=== PATIENT | female | born 1995 | race Caucasian/White ===

== ENCOUNTER 2019-05-24 20:05 | Emergency (ER) | payer MEDICAID ==
[~2019-05-24] VITALS: Ht 167.6 cm; Wt 67.0 kg
[2019-05-24 20:08] VITALS: BP 109/65
--- NOTE | 2019-05-24 20:40 | NUR ---
in room. as
--- NOTE | 2019-05-24 21:10 | NUR ---
ALL RESULTS ARE BACK AT THIS TIME. CHART UP FOR RECHECK.
== END 2019-05-24 21:46 | disposition home or self-care (01) ==
LOC: ED 20:30
DX: O26.891 Other specified pregnancy related conditions, first trimester (principal); S46.812A Strain of other muscles, fascia and tendons at shoulder and upper arm level, left arm, initial encounter; R20.2 Paresthesia of skin; J45.909 Unspecified asthma, uncomplicated; Z87.891 Personal history of nicotine dependence; Z3A.09 9 weeks gestation of pregnancy; X58.XXXA Exposure to other specified factors, initial encounter; Y93.89 Activity, other specified; Y92.89 Other specified places as the place of occurrence of the external cause; Y99.8 Other external cause status
CPT/HCPCS: 71045; 99283

== ENCOUNTER 2019-05-27 11:10 | Emergency (ER) | payer MEDICAID ==
[~2019-05-27] VITALS: Ht 170.2 cm; Wt 65.9 kg
[2019-05-27 11:15] VITALS: BP 121/60
--- NOTE | 2019-05-27 11:38 | NUR ---
PT TO ULTRASOUND AT THIS TIME.
[2019-05-27 12:41] LABS: BASOPHILS # (AUTO) 0.05 x10^3/uL (0-0.1); BASOPHILS % (AUTO) 1 % (0-1); EOSINOPHILS # (AUTO) 0.14 x10^3/uL (0-0.4); EOSINOPHILS % (AUTO) 1 % (1-7); LYMPHOCYTES # (AUTO) 1.98 x10^3/uL (1-3.4); LYMPHOCYTES % (AUTO) 19 % (22-44); MD NO; MEAN CORPUSCULAR HGB CONC 32.9 g/dL (32.4-35.8); MEAN CORPUSCULAR VOLUME 94.2 fL (80-100); MEAN PLATELET VOLUME 7.8 fL (7.4-10.4); MONOCYTES # (AUTO) 0.58 x10^3/uL (0.2-0.8); MONOCYTES % (AUTO) 6 % (2-9); NEUTROPHILS # (AUTO) 7.59 x10^3/uL (1.8-6.8); NEUTROPHILS % (AUTO) 73 % (42-75); PLATELET COUNT 294 x10^3/uL (130-400); RED BLOOD COUNT 4.26 x10^6/uL (3.82-5.3); RED CELL DISTRIBUTION WIDTH 12.6 % (9.6-15.2)
[2019-05-27 12:50] LABS: MICROSCOPIC NOT IND
[2019-05-27 12:54] LABS: ALBUMIN 3.6 g/dL (3.4-5.0); ANION GAP 6 mmol/L (5-15); CALCIUM 9.5 mg/dL (8.5-10.1); CHLORIDE 106 mmol/L (98-107)
[2019-05-27 12:54] LABS: CULTURE INDICATED? NO
[2019-05-27 12:58] LABS: ALANINE AMINOTRANSFERASE 15 U/L (12-78); ALKALINE PHOSPHATASE 76 U/L (45-117); BILIRUBIN,TOTAL 0.3 mg/dL (0.2-1.0); CREATININE 0.67 mg/dL (0.55-1.02); TOTAL PROTEIN 7.5 g/dL (6.4-8.2)
== END 2019-05-27 13:24 | disposition home or self-care (01) ==
LOC: ED 12:40
DX: O20.0 Threatened abortion (principal); O99.511 Diseases of the respiratory system complicating pregnancy, first trimester; J45.909 Unspecified asthma, uncomplicated; Z3A.09 9 weeks gestation of pregnancy
CPT/HCPCS: 36415; 76801; 80053; 81003; 85025; 99284

== ENCOUNTER 2019-05-30 18:41 | Emergency (ER) | payer MEDICAID ==
[~2019-05-30] VITALS: Ht 170.2 cm; Wt 64.6 kg
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
[2019-05-30] MEDS ORDERED: SODIUM CHLORIDE 0.9% 1,000ML IVBOLUS ONE (19:30)
[2019-05-30] MEDS ORDERED: SODIUM CHLORIDE FLUSH 10ML SYR IVF ONE (19:30)
[2019-05-30] MEDS ORDERED: ONDANSETRON 2MG/ML, 2ML IVPush ONE (19:30)
[2019-05-30] MEDS ORDERED: ONDANSETRON 2MG/ML, 2ML ONE (19:44)
[2019-05-30] MEDS ORDERED: ACETAMINOPHEN 500 MG TABLET ONE ×3 (20:10→20:14)
[2019-05-30 20:14] LABS: MEAN CORPUSCULAR HEMOGLOBIN 31.1 pg (27.0-34.8); MEAN CORPUSCULAR HGB CONC 32.9 g/dL (32.4-35.8); MEAN CORPUSCULAR VOLUME 94.4 fL (80-100); MEAN PLATELET VOLUME 7.7 fL (7.4-10.4); PLATELET COUNT 315 x10^3/uL (130-400); RED BLOOD COUNT 4.58 x10^6/uL (3.82-5.3); RED CELL DISTRIBUTION WIDTH 12.2 % (9.6-15.2)
[2019-05-30 20:19] LABS: ALANINE AMINOTRANSFERASE 17 U/L (12-78); ALBUMIN 3.9 g/dL (3.4-5.0); ANION GAP 9 mmol/L (5-15); CALCIUM 9.6 mg/dL (8.5-10.1); CHLORIDE 104 mmol/L (98-107); CREATININE 0.88 mg/dL (0.55-1.02)
[2019-05-30 20:21] LABS: ALKALINE PHOSPHATASE 95 U/L (45-117); BILIRUBIN,TOTAL 0.7 mg/dL (0.2-1.0); TOTAL PROTEIN 8.5 g/dL (6.4-8.2)
[2019-05-30 20:28] LABS: BASOPHILS # (AUTO) 0.03 x10^3/uL (0-0.1); BASOPHILS % (AUTO) 0 % (0-1); EOSINOPHILS % (AUTO) 0 % (1-7); LYMPHOCYTES # (AUTO) 0.92 x10^3/uL (1-3.4); LYMPHOCYTES % (AUTO) 6 % (22-44); MD SCAN; MONOCYTES # (AUTO) 0.49 x10^3/uL (0.2-0.8); MONOCYTES % (AUTO) 3 % (2-9); NEUTROPHILS # (AUTO) 13.21 x10^3/uL (1.8-6.8); NEUTROPHILS % (AUTO) 90 % (42-75)
[2019-05-30 20:30] LABS: CULTURE INDICATED? YES; MICROSCOPIC INDICATED
[2019-05-30] MEDS ORDERED: ACETAMINOPHEN 500 MG TABLET PO ONE (20:30)
[2019-05-30] MEDS ORDERED: ACETAMINOPHEN 325 MG TABLET PO ONE (20:30)
[2019-05-30] MEDS ORDERED: CEFTRIAXONE PMX 1GM/50ML 50 ML ONE (20:50)
--- NOTE | 2019-05-30 20:55 | NUR ---
ANTIBIOTICS STARTED AFTER BLOOD CULTURES X 2 WERE DRAWN.
[2019-05-30] MEDS ORDERED: CEFTRIAXONE PMX 1GM/50ML 50 ML IV ONE (21:00)
[2019-05-30 21:47] VITALS: BP 121/84
== END 2019-05-30 21:50 | disposition home or self-care (01) ==
LOC: ED 19:14
DX: O23.11 Infections of bladder in pregnancy, first trimester (principal); Z20.828 Contact with and (suspected) exposure to other viral communicable diseases; O21.8 Other vomiting complicating pregnancy; O99.511 Diseases of the respiratory system complicating pregnancy, first trimester; Z3A.10 10 weeks gestation of pregnancy
CPT/HCPCS: 36415; 80053; 81001; 83605; 83690; 84145; 85025; 87040; 87086; 96361; 96365; 96375; 99284; J0696; J2405; J7030

== ENCOUNTER 2019-06-16 21:03 | Emergency (ER) | payer MEDICAID ==
[~2019-06-16] VITALS: Ht 167.6 cm; Wt 64.2 kg
[2019-06-16 21:08] VITALS: BP 103/65
--- NOTE | 2019-06-16 21:18 | NUR ---
provided pt with rosalina
[2019-06-16] MEDS ORDERED: PRENATAL PO (21:25)
[2019-06-16] MEDS ORDERED: ACET325C6 PO (21:25)
--- NOTE | 2019-06-16 21:25 | NUR ---
PT SITTING UP ON GURNEY, MONITORS APPLIED, SIDERAILS UP X2, CALL LIGHT WITHIN REACH. PA AT BEDSIDE FOR EVAL, AWAITING ORDERS
--- NOTE | 2019-06-16 21:42 | NUR ---
elevated right arm on pillow and ice pack applied to right shoulder
--- NOTE | 2019-06-16 21:53 | NUR ---
driver's education instructor at pt's bedside to apply sling to right side
== END 2019-06-16 22:03 | disposition home or self-care (01) ==
LOC: ED 21:18
DX: O26.891 Other specified pregnancy related conditions, first trimester (principal); M25.511 Pain in right shoulder; R11.0 Nausea; F17.200 Nicotine dependence, unspecified, uncomplicated; J45.909 Unspecified asthma, uncomplicated; R94.31 Abnormal electrocardiogram [ECG] [EKG]; Z3A.12 12 weeks gestation of pregnancy
CPT/HCPCS: 93005; 99283

== ENCOUNTER 2019-06-30 18:47 | Emergency (ER) | payer MEDICAID ==
[~2019-06-30] VITALS: Ht 167.6 cm; Wt 68.0 kg
[~2019-06-30 18:47] MED LIST: ACET325C6 PO; PRENATAL PO
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
--- NOTE | 2019-06-30 19:00 | NUR ---
[place] [id number] HERE TAKING STATEMENT AND WILL FILE CPS REPORT
--- NOTE | 2019-06-30 19:55 | NUR ---
Jace from [employer] with [employer], phone [phone], states patient will be placed in hotel by them for tonight. [address] and the [place] [address] [place] [address], [address]. Patient can call Jace if needed. Asks that patient is given taxi voucher on discharge to pharmacy picking technician her daughter and then go to this hotel.
[2019-06-30 20:45] LABS: CULTURE INDICATED? YES; MICROSCOPIC INDICATED
[2019-06-30 21:59] VITALS: BP 105/78
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
== END 2019-06-30 22:08 | disposition home or self-care (01) ==
LOC: ED 19:59
DX: O23.12 Infections of bladder in pregnancy, second trimester (principal); O99.512 Diseases of the respiratory system complicating pregnancy, second trimester; R10.33 Periumbilical pain; J45.909 Unspecified asthma, uncomplicated; Z3A.14 14 weeks gestation of pregnancy
CPT/HCPCS: 76815; 81001; 87086; 99284

== ENCOUNTER 2019-10-07 19:44 | Outpatient (CLI) | payer MEDICAID ==
[~2019-10-07] VITALS: Ht 167.6 cm; Wt 65.0 kg
[2019-10-07 19:57] VITALS: BP 106/60
[2019-10-07 20:23] LABS: MICROSCOPIC INDICATED
[2019-10-07 20:31] LABS: AMPHETAMINE SCREEN, URINE Negative (Negative); BARBITURATE SCREEN, URINE Negative (Negative); BENZODIAZEPINE SCREEN, URINE Negative (Negative); CANNABINOID SCREEN, URINE Negative (Negative); COCAINE SCREEN, URINE Negative (Negative); METHADONE SCREEN, URINE Negative (Negative); OPIATE SCREEN, URINE Negative (Negative)
== END 2019-10-07 22:23 | disposition home or self-care (01) ==
LOC: LDOP 19:44
PROVIDERS: ATTEND Obstetrics & Gynecology
DX: O26.893 Other specified pregnancy related conditions, third trimester (principal); R10.9 Unspecified abdominal pain; Z3A.28 28 weeks gestation of pregnancy
CPT/HCPCS: 76815; 80307; 81001; 87086; 99211; G0463

== ENCOUNTER 2020-07-01 16:13 | Emergency (ER) | payer MEDICAID ==
[~2020-07-01] VITALS: Ht 167.6 cm; Wt 70.7 kg
[2020-07-01 16:36] VITALS: BP 103/61
--- NOTE | 2020-07-01 16:44 | NUR ---
PATIENT LEFT WITHOUT BEING SEEN BY A PROVIDER. AMBULATORY WITH STEADY GAIT FROM ED WITH SIGNIFICANT OTHER.
== END 2020-07-01 16:45 | disposition left against medical advice (07) ==
LOC: ED 16:39
DX: K08.89 Other specified disorders of teeth and supporting structures (principal); Z53.21 Procedure and treatment not carried out due to patient leaving prior to being seen by health care provider

== ENCOUNTER 2020-08-15 02:17 | Emergency (ER) | payer MEDICAID ==
[~2020-08-15] VITALS: Ht 167.6 cm; Wt 74.0 kg
[2020-08-15 02:20] VITALS: BP 125/65
--- NOTE | 2020-08-15 02:26 | NUR ---
PT LEFT AMA. PT ADVISED THAT SHE SHOULD STAY AND BE EVALUATED BY AN ERP. PT DECIDED TO LEAVE DESPITE TEACHING
== END 2020-08-15 02:29 | disposition left against medical advice (07) ==
LOC: ED 02:18
DX: K08.89 Other specified disorders of teeth and supporting structures (principal); Z53.21 Procedure and treatment not carried out due to patient leaving prior to being seen by health care provider